=== PATIENT | female | born 1945 | race Caucasian/White ===

== ENCOUNTER → 2023-11-04 13:02 | Outpatient (REF) | payer MEDICARE, SELFPAY ==
[2023-11-04 14:59] LABS: % Basophils 1.8 % (0-2); % Eosinophils 9.3 % (0-6); % Immature Granulocytes 4.5 % (0-0.5); % Lymphocytes 21.6 % (20.5-51.1); % Monocytes 10.7 % (1.7-9.3); % Neutrophils 52.1 % (42.2-75.2); Absolute Basophils 0.2 10^3/uL (0-0.2); Absolute Eosinophils 0.8 10^3/uL (0-0.7); Absolute Immature Granulocytes 0.4 10^3/uL (0-0.05); Absolute Lymphocytes 1.8 10^3/uL (1.2-3.4); Absolute Monocytes 0.9 10^3/uL (0.1-0.6); Absolute Neutrophils 4.3 10^3/uL (1.4-6.5); Hematocrit 30.4 % (37.0-47.0); Hemoglobin 9.8 g/dL (12.0-16.0); Mean Corp Hgb Conc. 32.2 g/dL (33.0-37.0); Mean Corpuscular Hgb 32.1 pg (27.0-31.0); Mean Corpuscular Volume 99.7 fL (81.0-99.0); Mean Platelet Volume 12.1 fL (7.4-10.4); Nucleated Red Blood Cells % 0.5 %; Platelet Count 364 10^3/uL (130-400); Red Blood Cell Count 3.05 10^6/uL (4.20-5.40); Red Cell Dist. Width 22.6 % (11.5-14.5); White Blood Cell Count 8.2 10^3/uL (4.8-10.8)
== END ==
LOC: HWLAB 13:02
PROVIDERS: ATTENDING PHYSICIAN Internal Medicine Hematology & Oncology; FAMILY PHYSICIAN Family Medicine
DX: D63.8 Anemia in other chronic diseases classified elsewhere (principal); D46.9 Myelodysplastic syndrome, unspecified
CPT/HCPCS: 36415; 85025

== ENCOUNTER → 2023-11-05 12:54 | Outpatient (REF) | payer MEDICARE, SELFPAY ==
[2023-11-05 16:08] LABS: Iron 124 ug/dl (37-170)
[2023-11-05 16:17] LABS: Percent Saturation 43 % (20-50); Total Iron Binding Capacity 283 ug/dl (265-497)
== END ==
LOC: HWLAB 12:54
PROVIDERS: ATTENDING PHYSICIAN Internal Medicine Hematology & Oncology; FAMILY PHYSICIAN Family Medicine
DX: D63.8 Anemia in other chronic diseases classified elsewhere (principal); D46.9 Myelodysplastic syndrome, unspecified
CPT/HCPCS: 36415; 82728; 83540; 83550

== ENCOUNTER → 2023-11-12 13:46 | Outpatient (REF) | payer MEDICARE, SELFPAY ==
[2023-11-12 15:59] LABS: % Basophils 1.3 % (0-2); % Eosinophils 4.9 % (0-6); % Immature Granulocytes 3.7 % (0-0.5); % Lymphocytes 18.4 % (20.5-51.1); % Monocytes 10.1 % (1.7-9.3); % Neutrophils 61.6 % (42.2-75.2); Absolute Basophils 0.1 10^3/uL (0-0.2); Absolute Eosinophils 0.5 10^3/uL (0-0.7); Absolute Immature Granulocytes 0.4 10^3/uL (0-0.05); Absolute Lymphocytes 1.8 10^3/uL (1.2-3.4); Absolute Neutrophils 6.1 10^3/uL (1.4-6.5); Hematocrit 32.1 % (37.0-47.0); Hemoglobin 10.4 g/dL (12.0-16.0); Mean Corp Hgb Conc. 32.4 g/dL (33.0-37.0); Mean Corpuscular Hgb 31.8 pg (27.0-31.0); Mean Corpuscular Volume 98.2 fL (81.0-99.0); Mean Platelet Volume 12.2 fL (7.4-10.4); Nucleated Red Blood Cells % 1.3 %; Platelet Count 481 10^3/uL (130-400); Red Blood Cell Count 3.27 10^6/uL (4.20-5.40); Red Cell Dist. Width 22.5 % (11.5-14.5)
[2023-11-12 16:39] LABS: Anisocytosis 1+; Normal RBC Morphology No
[2023-11-12 16:40] LABS: Macrocytosis 1+; Ovalocytes 1+
[2023-11-12 16:41] LABS: Polychromasia Slight
== END ==
LOC: HWLAB 13:46
PROVIDERS: ATTENDING PHYSICIAN Internal Medicine Hematology & Oncology; FAMILY PHYSICIAN Family Medicine
DX: D63.8 Anemia in other chronic diseases classified elsewhere (principal); D46.9 Myelodysplastic syndrome, unspecified
CPT/HCPCS: 36415; 85025

== ENCOUNTER → 2023-11-19 13:35 | Outpatient (REF) | payer MEDICARE, SELFPAY ==
[2023-11-19 16:25] LABS: % Basophils 1.3 % (0-2); % Eosinophils 11.1 % (0-6); % Immature Granulocytes 1.3 % (0-0.5); % Lymphocytes 24.8 % (20.5-51.1); % Monocytes 11.2 % (1.7-9.3); % Neutrophils 50.3 % (42.2-75.2); Absolute Basophils 0.1 10^3/uL (0-0.2); Absolute Eosinophils 0.7 10^3/uL (0-0.7); Absolute Immature Granulocytes 0.1 10^3/uL (0-0.05); Absolute Lymphocytes 1.5 10^3/uL (1.2-3.4); Absolute Monocytes 0.7 10^3/uL (0.1-0.6); Hematocrit 29.5 % (37.0-47.0); Hemoglobin 9.6 g/dL (12.0-16.0); Mean Corp Hgb Conc. 32.5 g/dL (33.0-37.0); Mean Corpuscular Hgb 31.8 pg (27.0-31.0); Mean Corpuscular Volume 97.7 fL (81.0-99.0); Mean Platelet Volume 11.8 fL (7.4-10.4); Nucleated Red Blood Cells % 0.5 %; Platelet Count 367 10^3/uL (130-400); Red Blood Cell Count 3.02 10^6/uL (4.20-5.40); Red Cell Dist. Width 23.2 % (11.5-14.5)
[2023-11-19 16:52] LABS: Anisocytosis 2+; Hypochromasia 1+; Normal RBC Morphology No
[2023-11-19 16:53] LABS: Ovalocytes 2+
== END ==
LOC: HWLAB 13:35
PROVIDERS: ATTENDING PHYSICIAN Internal Medicine Hematology & Oncology; FAMILY PHYSICIAN Family Medicine
DX: D63.8 Anemia in other chronic diseases classified elsewhere (principal); D46.9 Myelodysplastic syndrome, unspecified
CPT/HCPCS: 36415; 85025

== ENCOUNTER → 2023-11-25 13:19 | Outpatient (REF) | payer MEDICARE, SELFPAY ==
[2023-11-25 15:13] LABS: % Basophils 1.3 % (0-2); % Eosinophils 11.2 % (0-6); % Immature Granulocytes 3.5 % (0-0.5); Absolute Basophils 0.1 10^3/uL (0-0.2); Absolute Eosinophils 0.9 10^3/uL (0-0.7); Absolute Immature Granulocytes 0.3 10^3/uL (0-0.05); Absolute Lymphocytes 1.8 10^3/uL (1.2-3.4); Absolute Monocytes 0.8 10^3/uL (0.1-0.6); Absolute Neutrophils 3.9 10^3/uL (1.4-6.5); Hematocrit 34.3 % (37.0-47.0); Hemoglobin 10.8 g/dL (12.0-16.0); Mean Corp Hgb Conc. 31.5 g/dL (33.0-37.0); Mean Corpuscular Hgb 31.5 pg (27.0-31.0); Mean Platelet Volume 11.7 fL (7.4-10.4); Nucleated Red Blood Cells % 0.4 %; Platelet Count 399 10^3/uL (130-400); Red Blood Cell Count 3.43 10^6/uL (4.20-5.40); Red Cell Dist. Width 23.3 % (11.5-14.5); White Blood Cell Count 7.6 10^3/uL (4.8-10.8)
[2023-11-25 15:55] LABS: Anisocytosis 1+; Normal RBC Morphology No; Ovalocytes Slight
== END ==
LOC: HWLAB 13:19
PROVIDERS: ATTENDING PHYSICIAN Internal Medicine Hematology & Oncology; FAMILY PHYSICIAN Family Medicine
DX: D63.8 Anemia in other chronic diseases classified elsewhere (principal); D46.9 Myelodysplastic syndrome, unspecified
CPT/HCPCS: 36415; 85025

== ENCOUNTER → 2023-12-01 11:50 | Outpatient (REF) | payer MEDICARE, OTHER, SELFPAY | LOC: WDC 11:50 | PROVIDERS: ATTENDING PHYSICIAN Family Medicine | DX: Z12.31 Encounter for screening mammogram for malignant neoplasm of breast (principal) | CPT/HCPCS: 77063; 77067 ==

== ENCOUNTER → 2023-12-03 13:19 | Outpatient (REF) | payer MEDICARE, OTHER, SELFPAY ==
[2023-12-03 16:03] LABS: % Basophils 1.8 % (0-2); % Eosinophils 8.4 % (0-6); % Immature Granulocytes 4.9 % (0-0.5); % Monocytes 11.1 % (1.7-9.3); % Neutrophils 52.8 % (42.2-75.2); Absolute Basophils 0.2 10^3/uL (0-0.2); Absolute Eosinophils 0.8 10^3/uL (0-0.7); Absolute Immature Granulocytes 0.5 10^3/uL (0-0.05); Absolute Lymphocytes 2.1 10^3/uL (1.2-3.4); Absolute Monocytes 1.1 10^3/uL (0.1-0.6); Absolute Neutrophils 5.3 10^3/uL (1.4-6.5); Hematocrit 34.8 % (37.0-47.0); Mean Corp Hgb Conc. 31.6 g/dL (33.0-37.0); Mean Corpuscular Hgb 31.2 pg (27.0-31.0); Mean Corpuscular Volume 98.6 fL (81.0-99.0); Mean Platelet Volume 12.1 fL (7.4-10.4); Nucleated Red Blood Cells % 0.9 %; Platelet Count 466 10^3/uL (130-400); Red Blood Cell Count 3.53 10^6/uL (4.20-5.40); Red Cell Dist. Width 22.6 % (11.5-14.5)
[2023-12-03 16:18] LABS: Anisocytosis 1+; Hypochromasia 1+
[2023-12-03 16:19] LABS: Polychromasia Slight
[2023-12-03 16:20] LABS: Normal RBC Morphology No
== END ==
LOC: HWLAB 13:19
PROVIDERS: ATTENDING PHYSICIAN Internal Medicine Hematology & Oncology; FAMILY PHYSICIAN Family Medicine
DX: D63.8 Anemia in other chronic diseases classified elsewhere (principal); D46.9 Myelodysplastic syndrome, unspecified
CPT/HCPCS: 36415; 85025

== ENCOUNTER → 2023-12-09 10:10 | Outpatient (REF) | payer MEDICARE, OTHER, SELFPAY ==
[2023-12-09 12:12] LABS: % Basophils 1.8 % (0-2); % Lymphocytes 20.4 % (20.5-51.1); % Monocytes 9.6 % (1.7-9.3); % Neutrophils 57.2 % (42.2-75.2); Absolute Basophils 0.1 10^3/uL (0-0.2); Absolute Eosinophils 0.6 10^3/uL (0-0.7); Absolute Immature Granulocytes 0.1 10^3/uL (0-0.05); Absolute Lymphocytes 1.5 10^3/uL (1.2-3.4); Absolute Monocytes 0.7 10^3/uL (0.1-0.6); Absolute Neutrophils 4.1 10^3/uL (1.4-6.5); Hematocrit 35.3 % (37.0-47.0); Hemoglobin 11.3 g/dL (12.0-16.0); Mean Corpuscular Hgb 31.1 pg (27.0-31.0); Mean Corpuscular Volume 97.2 fL (81.0-99.0); Nucleated Red Blood Cells % 0.6 %; Platelet Count 378 10^3/uL (130-400); Red Blood Cell Count 3.63 10^6/uL (4.20-5.40); Red Cell Dist. Width 22.1 % (11.5-14.5); White Blood Cell Count 7.1 10^3/uL (4.8-10.8)
== END ==
LOC: HWLAB 10:10
PROVIDERS: ATTENDING PHYSICIAN Internal Medicine Hematology & Oncology; FAMILY PHYSICIAN Family Medicine
DX: D63.8 Anemia in other chronic diseases classified elsewhere (principal); D46.9 Myelodysplastic syndrome, unspecified
CPT/HCPCS: 36415; 85025

== ENCOUNTER → 2023-12-17 13:32 | Outpatient (REF) | payer MEDICARE, OTHER, SELFPAY ==
[2023-12-17 15:55] LABS: Hematocrit 37.3 % (37.0-47.0); Mean Corp Hgb Conc. 32.2 g/dL (33.0-37.0); Mean Corpuscular Hgb 31.6 pg (27.0-31.0); Mean Corpuscular Volume 98.2 fL (81.0-99.0); Mean Platelet Volume 11.8 fL (7.4-10.4); Platelet Count 425 10^3/uL (130-400); Red Cell Dist. Width 22.5 % (11.5-14.5); White Blood Cell Count 7.6 10^3/uL (4.8-10.8)
[2023-12-17 16:25] LABS: Absolute Neutrophils -Man Diff 3.7 10^3/uL (1.4-6.5); Atypical Lymphocytes 10 %; Band Neutrophils 0 % (0-3); Eosinophils 17 % (0-6); Lymphocytes 17 % (20-51); Monocytes 6 % (2-9); Normal RBC Morphology No; Platelets Checked Yes; Segmented Neutrophils 49 % (42-75)
[2023-12-17 16:27] LABS: Anisocytosis 3+; Macrocytosis 1+; Microcytosis 2+; Nucleated Red Blood Cells 1 (-)
[2023-12-17 16:28] LABS: Ovalocytes 2+; Total Cells Counted 100
== END ==
LOC: HWLAB 13:32
PROVIDERS: ATTENDING PHYSICIAN Internal Medicine Hematology & Oncology; FAMILY PHYSICIAN Family Medicine
DX: D63.8 Anemia in other chronic diseases classified elsewhere (principal); D46.9 Myelodysplastic syndrome, unspecified
CPT/HCPCS: 36415; 85025

== ENCOUNTER → 2023-12-24 13:31 | Outpatient (REF) | payer MEDICARE, OTHER, SELFPAY ==
[2023-12-24 15:36] LABS: Hematocrit 33.8 % (37.0-47.0); Hemoglobin 10.9 g/dL (12.0-16.0); Mean Corp Hgb Conc. 32.2 g/dL (33.0-37.0); Mean Corpuscular Hgb 31.5 pg (27.0-31.0); Mean Corpuscular Volume 97.7 fL (81.0-99.0); Mean Platelet Volume 12.9 fL (7.4-10.4); Platelet Count 398 10^3/uL (130-400); Red Blood Cell Count 3.46 10^6/uL (4.20-5.40); Red Cell Dist. Width 23.1 % (11.5-14.5); White Blood Cell Count 7.6 10^3/uL (4.8-10.8)
[2023-12-24 16:42] LABS: % Basophils 1.7 % (0-2); % Eosinophils 9.7 % (0-6); % Lymphocytes 24.8 % (20.5-51.1); % Monocytes 10.1 % (1.7-9.3); % Neutrophils 51.7 % (42.2-75.2); Absolute Basophils 0.1 10^3/uL (0-0.2); Absolute Eosinophils 0.7 10^3/uL (0-0.7); Absolute Immature Granulocytes 0.2 10^3/uL (0-0.05); Absolute Lymphocytes 1.9 10^3/uL (1.2-3.4); Absolute Monocytes 0.8 10^3/uL (0.1-0.6); Absolute Neutrophils 3.9 10^3/uL (1.4-6.5); Anisocytosis 3+; Macrocytosis 3+; Normal RBC Morphology No; Nucleated Red Blood Cells % 0 %; Ovalocytes 2+; Polychromasia 2+; Tear Drop Red Blood Cells 1+
== END ==
LOC: HWLAB 13:31
PROVIDERS: ATTENDING PHYSICIAN Internal Medicine Hematology & Oncology; FAMILY PHYSICIAN Family Medicine
DX: D63.8 Anemia in other chronic diseases classified elsewhere (principal); D46.9 Myelodysplastic syndrome, unspecified
CPT/HCPCS: 36415; 85025

== ENCOUNTER → 2023-12-30 13:39 | Outpatient (REF) | payer MEDICARE, OTHER, SELFPAY ==
[2023-12-30 16:37] LABS: % Basophils 1.8 % (0-2); % Eosinophils 8.6 % (0-6); % Lymphocytes 22.3 % (20.5-51.1); % Monocytes 12.6 % (1.7-9.3); % Neutrophils 52.7 % (42.2-75.2); Absolute Basophils 0.1 10^3/uL (0-0.2); Absolute Eosinophils 0.7 10^3/uL (0-0.7); Absolute Immature Granulocytes 0.2 10^3/uL (0-0.05); Absolute Lymphocytes 1.8 10^3/uL (1.2-3.4); Absolute Neutrophils 4.2 10^3/uL (1.4-6.5); Hematocrit 35.2 % (37.0-47.0); Hemoglobin 11.4 g/dL (12.0-16.0); Mean Corp Hgb Conc. 32.4 g/dL (33.0-37.0); Mean Corpuscular Hgb 31.7 pg (27.0-31.0); Mean Corpuscular Volume 97.8 fL (81.0-99.0); Mean Platelet Volume 12.4 fL (7.4-10.4); Nucleated Red Blood Cells % 0.4 %; Platelet Count 429 10^3/uL (130-400); Red Cell Dist. Width 22.5 % (11.5-14.5); White Blood Cell Count 7.9 10^3/uL (4.8-10.8)
[2023-12-30 16:39] LABS: Anisocytosis 1+; Microcytosis 1+; Normal RBC Morphology No
== END ==
LOC: HWLAB 13:39
PROVIDERS: ATTENDING PHYSICIAN Internal Medicine Hematology & Oncology; FAMILY PHYSICIAN Family Medicine
DX: D63.8 Anemia in other chronic diseases classified elsewhere (principal); D46.9 Myelodysplastic syndrome, unspecified
CPT/HCPCS: 36415; 85025

== ENCOUNTER → 2024-01-14 13:29 | Outpatient (REF) | payer MEDICARE, OTHER, SELFPAY ==
[2024-01-14 16:25] LABS: Hematocrit 32.8 % (37.0-47.0); Hemoglobin 10.8 g/dL (12.0-16.0); Mean Corp Hgb Conc. 32.9 g/dL (33.0-37.0); Mean Corpuscular Hgb 31.2 pg (27.0-31.0); Mean Corpuscular Volume 94.8 fL (81.0-99.0); Mean Platelet Volume 12.9 fL (7.4-10.4); Platelet Count 404 10^3/uL (130-400); Red Blood Cell Count 3.46 10^6/uL (4.20-5.40); Red Cell Dist. Width 23.3 % (11.5-14.5); White Blood Cell Count 7.4 10^3/uL (4.8-10.8)
[2024-01-14 16:35] LABS: % Basophils 1.5 % (0-2); % Eosinophils 10.1 % (0-6); % Immature Granulocytes 1.9 % (0-0.5); % Lymphocytes 22.3 % (20.5-51.1); % Monocytes 10.7 % (1.7-9.3); % Neutrophils 53.5 % (42.2-75.2); Absolute Basophils 0.1 10^3/uL (0-0.2); Absolute Eosinophils 0.7 10^3/uL (0-0.7); Absolute Immature Granulocytes 0.1 10^3/uL (0-0.05); Absolute Lymphocytes 1.6 10^3/uL (1.2-3.4); Absolute Monocytes 0.8 10^3/uL (0.1-0.6); Absolute Neutrophils 3.9 10^3/uL (1.4-6.5); Nucleated Red Blood Cells % 0 %
[2024-01-14 16:36] LABS: Anisocytosis 2+
[2024-01-14 16:37] LABS: Normal RBC Morphology No; Ovalocytes Slight
[2024-01-14 16:38] LABS: Polychromasia Slight
== END ==
LOC: HWLAB 13:29
PROVIDERS: ATTENDING PHYSICIAN Internal Medicine Hematology & Oncology; FAMILY PHYSICIAN Family Medicine
DX: D63.8 Anemia in other chronic diseases classified elsewhere (principal); D46.9 Myelodysplastic syndrome, unspecified
CPT/HCPCS: 36415; 85025

== ENCOUNTER → 2024-01-20 13:05 | Outpatient (REF) | payer MEDICARE, OTHER, SELFPAY ==
[2024-01-20 16:10] LABS: Hematocrit 31.8 % (37.0-47.0); Hemoglobin 10.3 g/dL (12.0-16.0); Mean Corp Hgb Conc. 32.4 g/dL (33.0-37.0); Mean Corpuscular Hgb 30.6 pg (27.0-31.0); Mean Corpuscular Volume 94.4 fL (81.0-99.0); Mean Platelet Volume 12.4 fL (7.4-10.4); Platelet Count 401 10^3/uL (130-400); Red Blood Cell Count 3.37 10^6/uL (4.20-5.40); Red Cell Dist. Width 23.4 % (11.5-14.5); White Blood Cell Count 7.9 10^3/uL (4.8-10.8)
[2024-01-20 16:20] LABS: % Basophils 1.5 % (0-2); % Eosinophils 9.3 % (0-6); % Immature Granulocytes 2.7 % (0-0.5); % Lymphocytes 22.7 % (20.5-51.1); % Monocytes 10.1 % (1.7-9.3); % Neutrophils 53.7 % (42.2-75.2); Absolute Basophils 0.1 10^3/uL (0-0.2); Absolute Eosinophils 0.7 10^3/uL (0-0.7); Absolute Immature Granulocytes 0.2 10^3/uL (0-0.05); Absolute Lymphocytes 1.8 10^3/uL (1.2-3.4); Absolute Monocytes 0.8 10^3/uL (0.1-0.6); Absolute Neutrophils 4.2 10^3/uL (1.4-6.5); Anisocytosis 3+; Nucleated Red Blood Cells % 0 %
[2024-01-20 16:21] LABS: Macrocytosis 1+; Microcytosis 1+
[2024-01-20 16:22] LABS: Ovalocytes 2+
[2024-01-20 16:23] LABS: Tear Drop Red Blood Cells Slight
[2024-01-20 16:24] LABS: Normal RBC Morphology No
== END ==
LOC: HWLAB 13:05
PROVIDERS: ATTENDING PHYSICIAN Internal Medicine Hematology & Oncology; FAMILY PHYSICIAN Family Medicine
DX: D63.8 Anemia in other chronic diseases classified elsewhere (principal); D46.9 Myelodysplastic syndrome, unspecified
CPT/HCPCS: 36415; 85025

== ENCOUNTER → 2024-01-27 11:22 | Outpatient (REF) | payer MEDICARE, OTHER, SELFPAY ==
[2024-01-27 13:12] LABS: Hematocrit 34.8 % (37.0-47.0); Hemoglobin 11.2 g/dL (12.0-16.0); Mean Corp Hgb Conc. 32.2 g/dL (33.0-37.0); Mean Corpuscular Hgb 31.6 pg (27.0-31.0); Mean Corpuscular Volume 98.3 fL (81.0-99.0); Mean Platelet Volume 12.4 fL (7.4-10.4); Platelet Count 323 10^3/uL (130-400); Red Blood Cell Count 3.54 10^6/uL (4.20-5.40); Red Cell Dist. Width 22.6 % (11.5-14.5); White Blood Cell Count 6.3 10^3/uL (4.8-10.8)
[2024-01-27 14:04] LABS: % Basophils 2.1 % (0-2); % Eosinophils 11.7 % (0-6); % Immature Granulocytes 3.2 % (0-0.5); % Lymphocytes 18.1 % (20.5-51.1); % Monocytes 11.2 % (1.7-9.3); % Neutrophils 53.7 % (42.2-75.2); Absolute Basophils 0.1 10^3/uL (0-0.2); Absolute Eosinophils 0.7 10^3/uL (0-0.7); Absolute Immature Granulocytes 0.2 10^3/uL (0-0.05); Absolute Lymphocytes 1.2 10^3/uL (1.2-3.4); Absolute Monocytes 0.7 10^3/uL (0.1-0.6); Absolute Neutrophils 3.4 10^3/uL (1.4-6.5); Nucleated Red Blood Cells % 0.5 %
[2024-01-27 14:05] LABS: Anisocytosis 2+; Normal RBC Morphology No; Ovalocytes Slight
[2024-01-27 14:06] LABS: Hypochromasia Slight
== END ==
LOC: HWLAB 11:22
PROVIDERS: ATTENDING PHYSICIAN Internal Medicine Hematology & Oncology; FAMILY PHYSICIAN Family Medicine
DX: D63.8 Anemia in other chronic diseases classified elsewhere (principal); D46.9 Myelodysplastic syndrome, unspecified
CPT/HCPCS: 36415; 85025

== ENCOUNTER → 2024-02-04 13:37 | Outpatient (REF) | payer MEDICARE, OTHER, SELFPAY ==
[2024-02-04 16:23] LABS: Iron 189 ug/dl (37-170)
[2024-02-04 16:29] LABS: Hematocrit 34.1 % (37.0-47.0); Hemoglobin 11.2 g/dL (12.0-16.0); Mean Corp Hgb Conc. 32.8 g/dL (33.0-37.0); Mean Corpuscular Hgb 31.7 pg (27.0-31.0); Mean Corpuscular Volume 96.6 fL (81.0-99.0); Mean Platelet Volume 12.1 fL (7.4-10.4); Platelet Count 305 10^3/uL (130-400); Red Blood Cell Count 3.53 10^6/uL (4.20-5.40); Red Cell Dist. Width 22.5 % (11.5-14.5); White Blood Cell Count 7.2 10^3/uL (4.8-10.8)
[2024-02-04 16:32] LABS: Percent Saturation 67 % (20-50); Total Iron Binding Capacity 280 ug/dl (265-497)
[2024-02-04 16:54] LABS: % Basophils 1.8 % (0-2); % Eosinophils 8.7 % (0-6); % Immature Granulocytes 2.5 % (0-0.5); % Monocytes 10.1 % (1.7-9.3); % Neutrophils 51.9 % (42.2-75.2); Absolute Basophils 0.1 10^3/uL (0-0.2); Absolute Eosinophils 0.6 10^3/uL (0-0.7); Absolute Immature Granulocytes 0.2 10^3/uL (0-0.05); Absolute Lymphocytes 1.8 10^3/uL (1.2-3.4); Absolute Monocytes 0.7 10^3/uL (0.1-0.6); Absolute Neutrophils 3.8 10^3/uL (1.4-6.5); Nucleated Red Blood Cells % 0.3 %
[2024-02-04 16:59] LABS: Anisocytosis 2+; Normal RBC Morphology No
[2024-02-04 17:00] LABS: Hypochromasia 1+; Macrocytosis 2+; Ovalocytes 2+; Stomatocytes 1+; Tear Drop Red Blood Cells 1+
== END ==
LOC: HWLAB 13:37
PROVIDERS: ATTENDING PHYSICIAN Internal Medicine Hematology & Oncology; FAMILY PHYSICIAN Family Medicine
DX: D63.8 Anemia in other chronic diseases classified elsewhere (principal); D46.9 Myelodysplastic syndrome, unspecified
CPT/HCPCS: 36415; 82728; 83540; 83550; 85025

== ENCOUNTER → 2024-02-10 12:34 | Outpatient (REF) | payer MEDICARE, OTHER, SELFPAY ==
[2024-02-10 16:07] LABS: Hematocrit 33.9 % (37.0-47.0); Hemoglobin 11.1 g/dL (12.0-16.0); Mean Corp Hgb Conc. 32.7 g/dL (33.0-37.0); Mean Corpuscular Hgb 32.2 pg (27.0-31.0); Mean Corpuscular Volume 98.3 fL (81.0-99.0); Mean Platelet Volume 12.2 fL (7.4-10.4); Platelet Count 439 10^3/uL (130-400); Red Blood Cell Count 3.45 10^6/uL (4.20-5.40); Red Cell Dist. Width 22.5 % (11.5-14.5)
[2024-02-10 16:30] LABS: % Basophils 1.9 % (0-2); % Immature Granulocytes 3.2 % (0-0.5); % Lymphocytes 23.4 % (20.5-51.1); % Monocytes 11.5 % (1.7-9.3); Absolute Basophils 0.2 10^3/uL (0-0.2); Absolute Eosinophils 0.6 10^3/uL (0-0.7); Absolute Immature Granulocytes 0.3 10^3/uL (0-0.05); Absolute Lymphocytes 2.1 10^3/uL (1.2-3.4); Absolute Neutrophils 4.8 10^3/uL (1.4-6.5); Nucleated Red Blood Cells % 0.2 %
[2024-02-10 16:31] LABS: Anisocytosis 2+; Microcytosis Slight; Normal RBC Morphology No
[2024-02-10 16:32] LABS: Hypochromasia Slight; Macrocytosis 1+
[2024-02-10 16:33] LABS: Ovalocytes 2+; Stomatocytes Slight
== END ==
LOC: HWRCS 12:34
PROVIDERS: ATTENDING PHYSICIAN Internal Medicine Cardiovascular Disease; FAMILY PHYSICIAN Family Medicine; REFERRING PHYSICIAN Internal Medicine Hematology & Oncology
DX: I48.0 Paroxysmal atrial fibrillation (principal); D63.8 Anemia in other chronic diseases classified elsewhere; D46.9 Myelodysplastic syndrome, unspecified
CPT/HCPCS: 36415; 85025; 93306

== ENCOUNTER → 2024-02-18 13:01 | Outpatient (REF) | payer MEDICARE, OTHER, SELFPAY ==
[2024-02-18 16:31] LABS: Hematocrit 35.7 % (37.0-47.0); Hemoglobin 11.4 g/dL (12.0-16.0); Mean Corp Hgb Conc. 31.9 g/dL (33.0-37.0); Mean Corpuscular Hgb 31.4 pg (27.0-31.0); Mean Corpuscular Volume 98.3 fL (81.0-99.0); Mean Platelet Volume 12.3 fL (7.4-10.4); Platelet Count 321 10^3/uL (130-400); Red Blood Cell Count 3.63 10^6/uL (4.20-5.40); Red Cell Dist. Width 21.8 % (11.5-14.5); White Blood Cell Count 6.2 10^3/uL (4.8-10.8)
[2024-02-18 16:50] LABS: % Basophils 2.1 % (0-2); % Eosinophils 9.3 % (0-6); % Immature Granulocytes 2.1 % (0-0.5); % Lymphocytes 23.9 % (20.5-51.1); % Monocytes 9.5 % (1.7-9.3); % Neutrophils 53.1 % (42.2-75.2); Absolute Basophils 0.1 10^3/uL (0-0.2); Absolute Eosinophils 0.6 10^3/uL (0-0.7); Absolute Immature Granulocytes 0.1 10^3/uL (0-0.05); Absolute Lymphocytes 1.5 10^3/uL (1.2-3.4); Absolute Monocytes 0.6 10^3/uL (0.1-0.6); Absolute Neutrophils 3.3 10^3/uL (1.4-6.5); Nucleated Red Blood Cells % 0 %
== END ==
LOC: HWLAB 13:01
PROVIDERS: ATTENDING PHYSICIAN Internal Medicine Hematology & Oncology; FAMILY PHYSICIAN Family Medicine
DX: D63.8 Anemia in other chronic diseases classified elsewhere (principal); D46.9 Myelodysplastic syndrome, unspecified
CPT/HCPCS: 36415; 85025

== ENCOUNTER → 2024-03-03 10:37 | Outpatient (REF) | payer MEDICARE, OTHER, SELFPAY ==
[2024-03-03 12:39] LABS: Hematocrit 32.8 % (37.0-47.0); Hemoglobin 10.6 g/dL (12.0-16.0); Mean Corp Hgb Conc. 32.3 g/dL (33.0-37.0); Mean Corpuscular Hgb 30.5 pg (27.0-31.0); Mean Corpuscular Volume 94.3 fL (81.0-99.0); Mean Platelet Volume 11.7 fL (7.4-10.4); Platelet Count 334 10^3/uL (130-400); Red Blood Cell Count 3.48 10^6/uL (4.20-5.40); Red Cell Dist. Width 21.3 % (11.5-14.5); White Blood Cell Count 7.5 10^3/uL (4.8-10.8)
[2024-03-03 13:10] LABS: % Basophils 1.7 % (0-2); % Eosinophils 8.3 % (0-6); % Immature Granulocytes 1.7 % (0-0.5); % Lymphocytes 19.7 % (20.5-51.1); % Monocytes 10.2 % (1.7-9.3); % Neutrophils 58.4 % (42.2-75.2); Absolute Basophils 0.1 10^3/uL (0-0.2); Absolute Eosinophils 0.6 10^3/uL (0-0.7); Absolute Immature Granulocytes 0.1 10^3/uL (0-0.05); Absolute Lymphocytes 1.5 10^3/uL (1.2-3.4); Absolute Monocytes 0.8 10^3/uL (0.1-0.6); Absolute Neutrophils 4.4 10^3/uL (1.4-6.5); Nucleated Red Blood Cells % 0.3 %
== END ==
LOC: HWLAB 10:37
PROVIDERS: ATTENDING PHYSICIAN Internal Medicine Hematology & Oncology; FAMILY PHYSICIAN Family Medicine
DX: D63.8 Anemia in other chronic diseases classified elsewhere (principal); D46.9 Myelodysplastic syndrome, unspecified
CPT/HCPCS: 36415; 85025

== ENCOUNTER → 2024-03-17 13:10 | Outpatient (REF) | payer MEDICARE, OTHER, SELFPAY ==
[2024-03-17 16:06] LABS: Hematocrit 35.1 % (37.0-47.0); Hemoglobin 11.2 g/dL (12.0-16.0); Mean Corp Hgb Conc. 31.9 g/dL (33.0-37.0); Mean Corpuscular Volume 97.2 fL (81.0-99.0); Mean Platelet Volume 11.8 fL (7.4-10.4); Platelet Count 363 10^3/uL (130-400); Red Blood Cell Count 3.61 10^6/uL (4.20-5.40); Red Cell Dist. Width 22.4 % (11.5-14.5); White Blood Cell Count 8.7 10^3/uL (4.8-10.8)
[2024-03-17 17:05] LABS: % Basophils 1.5 % (0-2); % Eosinophils 9.3 % (0-6); % Immature Granulocytes 2.1 % (0-0.5); % Lymphocytes 24.1 % (20.5-51.1); % Monocytes 10.4 % (1.7-9.3); % Neutrophils 52.6 % (42.2-75.2); Absolute Basophils 0.1 10^3/uL (0-0.2); Absolute Eosinophils 0.8 10^3/uL (0-0.7); Absolute Immature Granulocytes 0.2 10^3/uL (0-0.05); Absolute Lymphocytes 2.1 10^3/uL (1.2-3.4); Absolute Monocytes 0.9 10^3/uL (0.1-0.6); Absolute Neutrophils 4.6 10^3/uL (1.4-6.5); Nucleated Red Blood Cells % 0.3 %
[2024-03-17 17:40] LABS: Hypochromasia 1+; Normal RBC Morphology No; Ovalocytes 2+; Stomatocytes 2+
== END ==
LOC: HWLAB 13:10
PROVIDERS: ATTENDING PHYSICIAN Internal Medicine Hematology & Oncology; FAMILY PHYSICIAN Family Medicine
DX: D63.8 Anemia in other chronic diseases classified elsewhere (principal); D46.9 Myelodysplastic syndrome, unspecified
CPT/HCPCS: 36415; 85025

== ENCOUNTER → 2024-03-24 13:19 | Outpatient (REF) | payer MEDICARE, OTHER, SELFPAY ==
[2024-03-24 15:16] LABS: Hematocrit 30.8 % (37.0-47.0); Hemoglobin 10.2 g/dL (12.0-16.0); Mean Corp Hgb Conc. 33.1 g/dL (33.0-37.0); Mean Corpuscular Volume 99.7 fL (81.0-99.0); Mean Platelet Volume 12.6 fL (7.4-10.4); Platelet Count 324 10^3/uL (130-400); Red Blood Cell Count 3.09 10^6/uL (4.20-5.40); Red Cell Dist. Width 22.1 % (11.5-14.5); White Blood Cell Count 8.1 10^3/uL (4.8-10.8)
[2024-03-24 16:23] LABS: Absolute Neutrophils -Man Diff 5.2 10^3/uL (1.4-6.5); Atypical Lymphocytes 5 %; Band Neutrophils 0 % (0-3); Eosinophils 11 % (0-6); Lymphocytes 11 % (20-51); Monocytes 8 % (2-9); Normal RBC Morphology No; Platelets Checked Yes; Segmented Neutrophils 65 % (42-75)
[2024-03-24 16:26] LABS: Anisocytosis 3+
[2024-03-24 16:27] LABS: Hypochromasia 1+; Microcytosis 2+; Ovalocytes 2+; Total Cells Counted 100
== END ==
LOC: HWLAB 13:19
PROVIDERS: ATTENDING PHYSICIAN Internal Medicine Hematology & Oncology; FAMILY PHYSICIAN Family Medicine
DX: D63.8 Anemia in other chronic diseases classified elsewhere (principal); D46.9 Myelodysplastic syndrome, unspecified
CPT/HCPCS: 36415; 85025

== ENCOUNTER → 2024-04-06 12:45 | Outpatient (REF) | payer MEDICARE, OTHER, SELFPAY ==
[2024-04-06 17:15] LABS: Hematocrit 32.9 % (37.0-47.0); Hemoglobin 10.5 g/dL (12.0-16.0); Mean Corp Hgb Conc. 31.9 g/dL (33.0-37.0); Mean Corpuscular Hgb 31.5 pg (27.0-31.0); Mean Corpuscular Volume 98.8 fL (81.0-99.0); Mean Platelet Volume 12.6 fL (7.4-10.4); Platelet Count 384 10^3/uL (130-400); Red Blood Cell Count 3.33 10^6/uL (4.20-5.40); Red Cell Dist. Width 21.6 % (11.5-14.5); White Blood Cell Count 6.5 10^3/uL (4.8-10.8)
[2024-04-06 19:06] LABS: % Eosinophils 10.7 % (0-6); % Immature Granulocytes 2.5 % (0-0.5); % Lymphocytes 23.1 % (20.5-51.1); % Monocytes 9.6 % (1.7-9.3); % Neutrophils 52.1 % (42.2-75.2); Absolute Basophils 0.1 10^3/uL (0-0.2); Absolute Eosinophils 0.7 10^3/uL (0-0.7); Absolute Immature Granulocytes 0.2 10^3/uL (0-0.05); Absolute Lymphocytes 1.5 10^3/uL (1.2-3.4); Absolute Monocytes 0.6 10^3/uL (0.1-0.6); Absolute Neutrophils 3.4 10^3/uL (1.4-6.5); Nucleated Red Blood Cells % 0 %
== END ==
LOC: HWLAB 12:45
PROVIDERS: ATTENDING PHYSICIAN Internal Medicine Hematology & Oncology
DX: D63.8 Anemia in other chronic diseases classified elsewhere (principal); D46.9 Myelodysplastic syndrome, unspecified
CPT/HCPCS: 36415; 85025

== ENCOUNTER → 2024-04-20 13:16 | Outpatient (REF) | payer MEDICARE, OTHER, SELFPAY ==
[2024-04-20 16:24] LABS: Hematocrit 30.8 % (37.0-47.0); Hemoglobin 10.2 g/dL (12.0-16.0); Mean Corp Hgb Conc. 33.1 g/dL (33.0-37.0); Mean Corpuscular Hgb 32.4 pg (27.0-31.0); Mean Corpuscular Volume 97.8 fL (81.0-99.0); Mean Platelet Volume 12.9 fL (7.4-10.4); Platelet Count 342 10^3/uL (130-400); Red Blood Cell Count 3.15 10^6/uL (4.20-5.40); Red Cell Dist. Width 21.8 % (11.5-14.5); White Blood Cell Count 6.6 10^3/uL (4.8-10.8)
[2024-04-20 16:32] LABS: % Basophils 1.8 % (0-2); % Eosinophils 9.7 % (0-6); % Immature Granulocytes 1.5 % (0-0.5); % Monocytes 10.9 % (1.7-9.3); % Neutrophils 54.1 % (42.2-75.2); Absolute Basophils 0.1 10^3/uL (0-0.2); Absolute Eosinophils 0.6 10^3/uL (0-0.7); Absolute Immature Granulocytes 0.1 10^3/uL (0-0.05); Absolute Lymphocytes 1.5 10^3/uL (1.2-3.4); Absolute Monocytes 0.7 10^3/uL (0.1-0.6); Absolute Neutrophils 3.6 10^3/uL (1.4-6.5); Nucleated Red Blood Cells % 0.3 %
== END ==
LOC: HWLAB 13:16
PROVIDERS: ATTENDING PHYSICIAN Internal Medicine Hematology & Oncology; FAMILY PHYSICIAN Family Medicine
DX: D63.8 Anemia in other chronic diseases classified elsewhere (principal); D46.9 Myelodysplastic syndrome, unspecified
CPT/HCPCS: 85025

== ENCOUNTER → 2024-05-04 11:06 | Outpatient (REF) | payer MEDICARE, OTHER, SELFPAY ==
[2024-05-04 16:59] LABS: Hematocrit 33.1 % (37.0-47.0); Hemoglobin 10.7 g/dL (12.0-16.0); Mean Corp Hgb Conc. 32.3 g/dL (33.0-37.0); Mean Corpuscular Hgb 32.1 pg (27.0-31.0); Mean Corpuscular Volume 99.4 fL (81.0-99.0); Mean Platelet Volume 12.8 fL (7.4-10.4); Platelet Count 365 10^3/uL (130-400); Red Blood Cell Count 3.33 10^6/uL (4.20-5.40); Red Cell Dist. Width 22.9 % (11.5-14.5); White Blood Cell Count 7.7 10^3/uL (4.8-10.8)
[2024-05-04 17:00] LABS: Absolute Neutrophils -Man Diff 4.6 10^3/uL (1.4-6.5); Atypical Lymphocytes 5 %; Band Neutrophils 14 % (0-3); Eosinophils 8 % (0-6); Lymphocytes 13 % (20-51); Monocytes 13 % (2-9); Normal RBC Morphology No; Platelets Checked Yes; Segmented Neutrophils 47 % (42-75)
[2024-05-04 17:04] LABS: Acanthocytes Slight; Anisocytosis 1+; Hypochromasia 1+; Ovalocytes 1+; Poikilocytosis Slight; Polychromasia Slight; Tear Drop Red Blood Cells Slight; Total Cells Counted 100
== END ==
LOC: HWLAB 11:06
PROVIDERS: ATTENDING PHYSICIAN Internal Medicine Hematology & Oncology; FAMILY PHYSICIAN Family Medicine
DX: D63.8 Anemia in other chronic diseases classified elsewhere (principal); D46.9 Myelodysplastic syndrome, unspecified
CPT/HCPCS: 36415; 85025

== ENCOUNTER → 2024-12-01 13:32 | Outpatient (REF) | payer MEDICARE, OTHER, SELFPAY | LOC: WDC 13:32 | PROVIDERS: ATTENDING PHYSICIAN Family Medicine | DX: Z12.31 Encounter for screening mammogram for malignant neoplasm of breast (principal) | CPT/HCPCS: 77063; 77067 ==

== ENCOUNTER → 2025-01-16 11:51 | Outpatient (REF) | payer MEDICARE, OTHER, SELFPAY ==
[2025-01-16 16:08] LABS: ALT (SGPT) 22 U/L (0-35); AST (SGOT) 28 U/L (14-36); Albumin 4.1 g/dl (3.5-5.0); Alkaline Phosphatase 58 U/L (38-126); Blood Urea Nitrogen 14 mg/dl (7-17); Calcium 9.3 mg/dl (8.4-10.2); Carbon Dioxide 29 mmol/L (22-30); Chloride 105 mmol/L (98-107); Glucose 93 mg/dl (70-99); HDL Cholesterol 72 mg/dl; LDL Cholesterol, Calculated 74 mg/dl; Potassium 4.6 mmol/L (3.5-5.1); Sodium 137 mmol/L (135-145); Total Protein 6.7 g/dl (6.3-8.2); Very Low Density Lipoprotein 10 mg/dl (0-30); eGFR > 60.00
== END ==
LOC: HWLAB 11:51
PROVIDERS: ATTENDING PHYSICIAN Internal Medicine Cardiovascular Disease; FAMILY PHYSICIAN Family Medicine
DX: I48.0 Paroxysmal atrial fibrillation (principal); I27.20 Pulmonary hypertension, unspecified; E78.00 Pure hypercholesterolemia, unspecified
CPT/HCPCS: 36415; 80053; 80061; 83880

== ENCOUNTER → 2025-01-18 14:07 | Outpatient (REF) | payer MEDICARE, OTHER, SELFPAY | LOC: RAD 14:07 | PROVIDERS: ATTENDING PHYSICIAN Internal Medicine Cardiovascular Disease; FAMILY PHYSICIAN Family Medicine | DX: R06.02 Shortness of breath (principal) | CPT/HCPCS: 71046 ==

== ENCOUNTER → 2025-02-08 15:42 | Outpatient (REF) | payer MEDICARE, OTHER, SELFPAY | LOC: RCS 15:42 | PROVIDERS: ATTENDING PHYSICIAN Family Medicine; FAMILY PHYSICIAN Student in an Organized Health Care Education/Training Program | DX: R06.02 Shortness of breath (principal) | CPT/HCPCS: 93306 ==